=== PATIENT | female | born 1970 | race Two or more races ===

== ENCOUNTER 2024-03-30 18:37 | Emergency (ER) | payer MEDICAID, OTHER ==
[~2024-03-30] VITALS: Ht 149.9 cm; Wt 79.6 kg
[2024-03-30] MEDS ORDERED: cloNIDine HCL 0.1 MG TAB PO ONE (19:45)
[2024-03-30 20:14] LABS: Basophils # (auto) 0.1 10 ^3/uL (0-0.2); Basophils % (auto) 0.8 % (0.0-2.0); Eosinophils # (auto) 0.2 10 ^3/uL (0-0.8); Eosinophils % (auto) 2.5 % (0.0-7.0); Hematocrit 44.1 % (36.0-46.0); Hemoglobin 15.2 g/dL (12.2-16.2); Lymphocytes # (auto) 2.8 10 ^3/uL (0.4-5.4); Lymphocytes % (auto) 32.4 % (10.0-50.0); Mean Corpuscular Hemoglobin 32.4 pg (28.0-32.0); Mean Corpuscular Hgb Conc. 34.5 g/dL (32.0-36.0); Monocytes # (auto) 0.8 10 ^3/uL (0-1.3); Monocytes % (auto) 9.2 % (0.0-12.0); Neutrophils # (auto) 4.8 10 ^3/uL (1.6-8.6); Neutrophils % (auto) 55.1 % (37.0-80.0); Platelet Count (auto) 217 10^3/uL (140-450); Red Blood Cells 4.69 10^6/uL (4.0-5.20); Red Cell Distribution Width 13.6 % (11.8-14.3); White Blood Cell 8.8 10^3/uL (4.4-10.8)
[2024-03-30 20:28] LABS: Chloride 103 mmol/L (98-107); Potassium 4.1 mmol/L (3.5-5.1); Sodium 137 mmol/L (136-145)
[2024-03-30 20:29] VITALS: BP 168/106; PULSE 85; RESP 14; O2SAT 96
[2024-03-30 20:29] LABS: Anion Gap 5 (5-15); Carbon Dioxide 29 mmol/L (20-31)
[2024-03-30 20:30] LABS: Calcium 10.1 mg/dL (8.7-10.4)
[2024-03-30 20:34] LABS: BUN/Creatinine Ratio 9.5 (10.0-20.0); Blood Urea Nitrogen 8 mg/dL (9-23); Glucose 391 mg/dL (74-106)
[2024-03-30] MEDS: InsuLIN REG 1unit/0.01ml Soln (100units/ml) SC ONE (20:36)
[2024-03-30] MEDS: cloNIDine HCL 0.1 MG TAB PO ONE (20:36)
[2024-03-30] MEDS ORDERED: CEPH250C PO (21:37)
== END 2024-03-30 21:50 | disposition home or self-care (01) ==
LOC: ER 18:37
DX: E11.621 Type 2 diabetes mellitus with foot ulcer (principal); L97.519 Non-pressure chronic ulcer of other part of right foot with unspecified severity; E11.65 Type 2 diabetes mellitus with hyperglycemia; E11.42 Type 2 diabetes mellitus with diabetic polyneuropathy; I10 Essential (primary) hypertension; E66.9 Obesity, unspecified; Z68.35 Body mass index [BMI] 35.0-35.9, adult; Z90.49 Acquired absence of other specified parts of digestive tract; Z98.890 Other specified postprocedural states
CPT/HCPCS: 36415; 80048; 82010; 82962; 83605; 85025; 96372; 99283; J1815

== ENCOUNTER 2024-04-03 13:41 | Inpatient (IN) | payer MEDICAID ==
[~2024-04-03] VITALS: Ht 149.9 cm; Wt 74.5 kg
[~2024-04-03 13:41] MED LIST: CEPH250C PO
[2024-04-03] MEDS: SODIUM CHLORIDE 0.9% 500 ML IV ONE (14:15)
[2024-04-03 14:39] LABS: Basophils # (auto) 0.1 10 ^3/uL (0-0.2); Basophils % (auto) 0.8 % (0.0-2.0); Eosinophils # (auto) 0.2 10 ^3/uL (0-0.8); Eosinophils % (auto) 2.2 % (0.0-7.0); Hematocrit 44.8 % (36.0-46.0); Hemoglobin 15.3 g/dL (12.2-16.2); Lymphocytes # (auto) 2.6 10 ^3/uL (0.4-5.4); Lymphocytes % (auto) 36.9 % (10.0-50.0); Mean Corpuscular Hemoglobin 32.4 pg (28.0-32.0); Mean Corpuscular Hgb Conc. 34.2 g/dL (32.0-36.0); Mean Corpuscular Volume 94.7 fL (80.0-100.0); Monocytes # (auto) 0.6 10 ^3/uL (0-1.3); Monocytes % (auto) 8.9 % (0.0-12.0); Neutrophils # (auto) 3.6 10 ^3/uL (1.6-8.6); Neutrophils % (auto) 51.2 % (37.0-80.0); Nucleated Red Blood Cells % 0.1 %; Platelet Count (auto) 255 10^3/uL (140-450); Red Blood Cells 4.73 10^6/uL (4.0-5.20); Red Cell Distribution Width 13.3 % (11.8-14.3)
[2024-04-03 14:45] LABS: Chloride 102 mmol/L (98-107); Potassium 4.3 mmol/L (3.5-5.1); Sodium 137 mmol/L (136-145)
[2024-04-03 14:46] LABS: Anion Gap 8 (5-15); Calcium 10.1 mg/dL (8.7-10.4); Carbon Dioxide 27 mmol/L (20-31)
[2024-04-03 14:51] LABS: BUN/Creatinine Ratio 11.1 (10.0-20.0); Blood Urea Nitrogen 9 mg/dL (9-23)
[2024-04-03 15:01] LABS: Glucose 435 mg/dL (74-106)
[2024-04-03] MEDS: CLINDAMYCIN 600MG IV 50 ML IV ONE (15:15)
[2024-04-03] MEDS: cloNIDine HCL 0.1 MG TAB PO ONE (15:20)
--- NOTE | 2024-04-03 15:22 | DVH ---
INDICATION: pain and infection COMPARISON: None TECHNIQUE: CT of the right foot was performed without contrast. Volume transverse images were obtaine d and reconstructed in multiple planes using bone and soft tissue algorithms. Radiation Dose Information: CT Dose: CTDI volume is 24.73 mGy. Dose-length product is 557.64 mGy*cm FINDINGS: The alignment is normal. The joint spaces are normal. There is no fracture, dislocation or aggressive osseous lesion. There is no joint effusion. Diffuse subcutaneous soft-tissue edema. Soft-tissue ulceration of the inferior aspect of the foot at the level of the 2nd and 3rd MTP joint. IMPRESSION: Diffuse subcutaneous soft-tissue edema ; possibly cellulitis. Soft-tissue ulceration of the inferior aspect of the foot at the level of the 2nd and 3rd MTP joint. No acute fracture or dislocation or definite CT findings of acute osteomyelitis. MRI could be obtained to further evaluate if clinically indicated. All CT scans at this medical facility are performed using dose modulation techniques as appropriate t o a performed exam including the following: Automated exposure control was utilized; adjustment of th e MA and/or KV according to patient size; and use of iterative reconstruction technique.
[2024-04-03] MEDS: InsuLIN REG 1unit/0.01ml Soln (100units/ml) IV ONE (15:45)
[2024-04-03 16:00] VITALS: PULSE 71; RESP 10; O2SAT 95
--- NOTE | 2024-04-03 16:45 | ED.PDOC ---
History of Present Illness HPI Comments 53-year-old female who comes in with chief complaint of right foot pain and swelling with drainage from the area. The patient denies any trauma. The patient denies any fever or chills. At this time, the patient states that the pain is a 6/10. The pain seemed to worsened over the past seven days so she came to the emergency department's for evaluation. The patient does have a history of diabetes but states that she has not taken her medication for a significant period of time. She also has a history of hypertension and has been somewhat noncompliant. She did come in with an elevated blood pressure as well. Chief Complaint: Lower Extremity Time Seen by MD: 14:09 Primary Care Provider: none Reviewed Notes: Nurses Notes, Medications, Allergies (No allergies to medications) Allergies: Coded Allergies: NO KNOWN ALLERGIES (Unverified , 03/30/24) Home Meds Active Scripts Cephalexin (KEFLEX CAPSULE) 250 Mg Cp, 500 MG PO BID, #14 CAP Prov:CRISTAL CARABALLO MD 03/30/24 Information Source: Patient Mode of Arrival: Ambulatory Severity: Moderate Timing: Days Duration: Since onset Prehospital treatment: None Location: Right foot redness with some drainage to the base of the foot Associated signs and symptoms There is no fever or chills at this time Past Medical History PAST MEDICAL HISTORY: DM, HTN Surgical History: BTL, Cholecystectomy, [employer] History: Denies all [employer] Hx Family History Family History: Family hx of DM Social History Smoker: Non-Smoker Alcohol: Denies ETOH Use Drugs: Denies Drug Use Lives In: Home Constitutional: denies: chills, diaphoresis, fatigue, fever, malaise, sweats, weakness, others EENTM: denies: blurred vision, double vision, ear bleeding, ear discharge, ear drainage, ear pain, ear ringing, eye pain, eye redness, hearing loss, mouth p ain, mouth swelling, nasal discharge, nose bleeding, nose congestion, nose pain, photophobia, tearing, throat pain, throat swelling, voice changes, others Respiratory: denies: cough, hemoptysis, orthopnea, SOB at rest, shortness of br eath, SOB with excertion, stridor, wheezing, others Cardiovascular: denies: chest pain, dizzy spells, diaphoresis, Dyspnea on exertion, edema, irregular heart beat, left arm pain, lightheadedness, palpitations, PND, syncope, others Gastrointestinal: denies: abdomen distended, abdominal pain, blood streaked bowels, constipated, diarrhea, dysphagia, difficulty swallowing, hematemesis, melena, nausea, poor appetite, poor fluid intake, rectal bleeding, rectal pain, vomiting, others Genitourinary: denies: abnormal vagina bleeding, burning, dyspareunia, dysuria, flank pain, frequency, hematuria, incontinence, pain, , vagina discharge, urgency, others Neurological: denies: dizziness, fainting, headache, left sided numbness, left sided weakness, numbness, paresthesia, pre-existing deficit, right sided numbness, right sided weakness, seizure, speech problems, tingling, tremors, weakness, others Musculoskeletal: denies: back pain, gout, joint pain, joint swelling, muscle pain, muscle stiffness, neck pain, others Integumetry: reports: wounds (There is a wound to the base of the right foot on the plantar aspect with redness and some mild drainage); denies: bruises, change in color, change in hair/nails, dryness, laceration, lesions, lumps, rash, others Allergic/Immunocompromised: denies: Difficulty Healing, Frequent Infections, Hives, Itching, others Hematologic/Lymphatic: denies: anemia, blood clots, easy bleeding, easy bruising, swollen glands, others Endocrine: denies: excessive hunger, excessive sweating, excessive thirst, excessive urination, flushing, intolerance to cold, intolerance to heat, unexplained weight gain, unexplained weight loss, others Psychiatric: denies: anxiety, bipolar disorder, depression, hopeless, panic disorder, schizophrenia, sleepless, suicidal, others Physical Exam General Appearance: Moderate Distress HEENT: Normal ENT Inspection, Pharynx Normal, TMs Normal Neck: Full Range of Motion, Non-Tender, Normal, Normal Inspection Respiratory: Chest Non-Tender, Lungs Clear, No Accessory Muscle Use, No Respiratory Distress, Normal Breath Sounds Cardiovascular: No Edema, No JVD, No Murmur, No Gallop, Normal Peripheral Pulses, Regular Rate/Rhythm Breast Exam: Deferred Gastrointestinal: No Organomegaly, Non Tender, No Pulsatile Mass, Normal Bowel Sounds, Soft Genitalia: Deferred Pelvic: Deferred Rectal: Deferred Extremities: No calf tenderness, Normal capillary refill, No pedal edema Musculoskeletal : Apperance: Normal Neurologic: Alert, personal coach II-XII nml as Tested, No Motor Deficits, Normal Affect, Normal Mood, No Sensory Deficits Cerebellar Function: Normal Reflexes: Normal Skin: Dry, Warm, Wounds (There are wounds to the right foot with redness and drainage) Lymphatic: No Adenopathy Was a procedure done? Was a procedure done?: No Differential Dx Considerations may include: Cellulitis, abscess, generalized weakness X-Ray, Labs, Meds, VS Vital Signs Date Time Temp Pulse Resp B/P (MAP) Pulse Ox O2 Delivery O2 Flow Rate FiO2 04/03/24 16:00 71 10 95 Room Air* 0 21 04/03/24 15:20 211/104 04/03/24 15:17 211/104 (139) 04/03/24 15:16 90 18 96 Room Air 04/03/24 15:16 90 18 234/119 (157) 96 04/03/24 14:02 97.8 88 16 173/106 (128) 97 Lab Test 04/03/24 14:26 Range/Units White Blood Count 7.0 4.4-10.8 10^3/uL Red Blood Count 4.73 4.0-5.20 10^6/uL Hemoglobin 15.3 12.2-16.2 g/dL Hematocrit 44.8 36.0-46.0 % Mean Corpuscular Volume 94.7 80.0-100.0 fL Mean Corpuscular Hemoglobin 32.4 H 28.0-32.0 pg Mean Corpuscular Hemoglobin Concent 34.2 32.0-36.0 g/dL Red Cell Distribution Width 13.3 11.8-14.3 % Platelet Count 255 140-450 10^3/uL Mean Platelet Volume 10.6 6.9-10.8 fL Neutrophils (%) (Auto) 51.2 37.0-80.0 % Lymphocytes (%) (Auto) 36.9 10.0-50.0 % Monocytes (%) (Auto) 8.9 0.0-12.0 % Eosinophils (%) (Auto) 2.2 0.0-7.0 % Basophils (%) (Auto) 0.8 0.0-2.0 % Neutrophils # (Auto) 3.6 1.6-8.6 10 ^3/uL Lymphocytes # (Auto) 2.6 0.4-5.4 10 ^3/uL Monocytes # (Auto) 0.6 0-1.3 10 ^3/uL Eosinophils # (Auto) 0.2 0-0.8 10 ^3/uL Basophils # (Auto) 0.1 0-0.2 10 ^3/uL Nucleated Red Blood Cells 0.1 % Sodium Level 137 136-145 mmol/L Potassium Level 4.3 3.5-5.1 mmol/L Chloride Level 102 98-107 mmol/L Carbon Dioxide Level 27 20-31 mmol/L Anion Gap 8 5-15 Blood Urea Nitrogen 9 9-23 mg/dL Creatinine 0.81 0.550-1.02 mg/dL Glomerular Filtration Rate Calc 86 >90 mL/min BUN/Creatinine Ratio 11.1 10.0-20.0 Serum Glucose 435 *H 74-106 mg/dL Lactic Acid Level 1.7 0.4-2.0 mmol/L Calcium Level 10.1 8.7-10.4 mg/dL Current Medications Medications (Trade) Dose Ordered Sig/Robert Route Start Time Stop Time Status Last Admin Clindamycin Phosphate 50 ml @ 50 mls/hr ONCE ONCE IV 04/03/24 14:15 04/03/24 15:14 DC 04/03/24 15:15 Clonidine HCl (Catapres Tablet) 0.2 mg ONCE ONCE PO 04/03/24 15:15 04/03/24 15:16 DC 04/03/24 15:20 Insulin Human Regular (InsuLIN R) 5 units ONCE ONCE IV 04/03/24 15:45 04/03/24 15:46 DC 04/03/24 15:45 The patient's CBC and chemistry panel are within normal limits The patient was started on clindamycin IV piggyback The patient was given clonidine 0.2 mg by mouth for the elevated blood pressure The patient was also given insulin 5 units IV push for the hyperglycemia The patient's glucose was 435 The patient's lactic acid level is negative Blood cultures were also drawn on this patient The CT scan of the right foot shows: IMPRESSION: Diffuse subcutaneous soft-tissue edema ; possibly cellulitis. Soft-tissue ulceration of the inferior aspect of the foot at the level of the 2nd and 3rd MTP joint. No acute fracture or dislocation or definite CT findings of acute osteomyelitis. MRI could be obtained to further evaluate if clinically indicated. The patient is being admitted at this time Images Reviewed?: Images reviewed and evaluated by me Time of 1ST Reevaluation: 16:45 Reevaluation 1ST: Unchanged Patient Education/Counseling: Diagnosis, Treatment, Prognosis Family Education/Counseling: No Family Present Departure 1 Departure Time of Disposition: 16:58 Impression: Primary Impression: Diabetic foot ulcer Qualified Codes: E13.621 - Other specified diabetes mellitus with foot ulcer; L97.419 - Non-pressure chronic ulcer of right heel and midfoot with unspecified severity Additional Impressions: Poorly controlled diabetes mellitus Cellulitis of right foot Disposition: ADMITTED INPATIENT Admit to: Med Surg Condition: Fair Critical Care Note Critical Care Time?: No Stability Stability form required: Yes Unstable for transfer: ED Physician Assesment (Clinical assesment) Heart Score Heart Score: Heart Score Response (Comments) Value History N/A 0 EKG N/A 0 Age N/A 0 Risk Factors N/A 0 Troponin N/A 0 Total 0 BERONICA LUKE MD Apr 03, 2024 16:45
[2024-04-03] MEDS ORDERED: ACETAMINOPHEN 650 mg PER 20.3 mL UD PO ONE (17:00)
[2024-04-03] MEDS: ACETAMINOPHEN 325 MG TAB PO ONE (17:15)
[2024-04-03 19:48] VITALS: PULSE 80; RESP 15; O2SAT 95
[2024-04-03] MEDS ORDERED: DEXTROSE (50%) 50ML SYRG IV PRN (20:30)
[2024-04-03] MEDS ORDERED: MORPHINE SULFATE INJ 2 MG/ml SYRG IV PRN (20:30)
[2024-04-03] MEDS ORDERED: ONDANSETRON HCL 4 MG/2 ML VIAL IV PRN (20:30)
[2024-04-03] MEDS ORDERED: NITROGLYCERIN 0.4 MG SL TAB SL PRN (20:30)
[2024-04-03] MEDS: ENOXAPARIN SOD 40 MG/0.4 ML SYRINGE SC SCH (20:55)
[2024-04-03 22:30] VITALS: BP 167/70; PULSE 71; RESP 18; TEMP 98; O2SAT 97
[2024-04-03] MEDS: MORPHINE SULFATE INJ 2 MG/ml SYRG IV PRN (22:42)
[2024-04-03] MEDS: ACCU-CHEK COMFORT CURVE STRIP VI SCH (22:44)
[2024-04-03] MEDS: InsuLIN REG 1unit/0.01ml Soln (100units/ml) SC SCH (22:44)
[2024-04-03] MEDS: SODIUM CHLOR 0.9% PF (SALINE LOCK) 10ML VIAL/SYR IV SCH (22:45)
[2024-04-04] VITALS (8 sets, daily range): BP systolic 110–162; BP diastolic 62–89; PULSE 74–90; RESP 15–20; TEMP 97.6–98.4; O2SAT 92–97
[2024-04-04] MEDS ORDERED: VANCOMYCIN PER PHARMACY 0 MG IV SCH (00:45)
--- NOTE | 2024-04-04 00:54 | DVHHPRES ---
History of Present Illness Resident Creating Document: HUY DENNY RESIDENT History of Present Illness MACK JENKINS is a 53 years old female with a PMH of type 2 DM, HTN presented to the ED with the chief complaints of persistent right foot ulcer, pain for past 1 week. Last night patient had small cut in right foot, she went to ED, given Keflex but despite of antibiotic she has been having increased pain, swelling and worsening of the ulcer which prompted her to ED. patient states pain is 7/10 constant. Patient denies she is not taking any medications for her diabetes and hypertension. On my assessment patient denies fever, nausea, vomiting, chills, abdominal pain, chest pain, and other associated symptoms Past Medical History DM HTN Past Surgical History BTL, cholecystectomy, Family History Family history DM Past Social History Lives at home with family. Denies smoking, alcohol and other drug abuse Review of Systems Constitutional: No: Fever, Chills, Sweats, Weakness, Malaise, Other Eyes: No: Pain, Vision change, Conjunctivae inflammation, Eyelid inflammation, Other, Redness ENT: No: Ear pain, Ear discharge, Nose pain, Nose discharge, Nose congestion, Mouth pain, Mouth swelling, Throat pain, Throat swelling, Other Respiratory: No: Cough, Dry, Shortness of breath, SOB with excertion, Wheezing, Hemoptysis, Pleuritic Pain, Sputum, Wheezing, Other Gastrointestinal: No: Nausea, Vomiting, Abdominal Pain, Diarrhea, Constipation, Melena, Hematochezia, Other Genitourinary: No Dysuria, No Frequency, No Incontinence, No Hematuria, No Retention, No Other Musculoskeletal: No: other, neck pain, shoulder pain, arm pain, back pain, hand pain, leg pain, foot pain Skin: Other (Wound on plantar surface of right 2nd and 3rd metatarsal heads which is indurated, swollen, hot) Allergies: Coded Allergies: NO KNOWN ALLERGIES (Unverified , 03/30/24) Medications Current Medications Medications Dose Ordered Sig/Robert Route Start Time Stop Time Status Last Admin Dose Admin Sodium Chloride 10 ml Q8HR IV 04/03/24 22:00 04/03/24 22:45 10 ML Acetaminophen 325 mg Q4HP PRN PO 04/03/24 20:30 Ondansetron HCl 4 mg Q4HP PRN IV 04/03/24 20:30 Morphine Sulfate 2 mg Q4HPRN PRN IV 04/03/24 20:30 04/03/24 22:42 2 MG Enoxaparin Sodium 40 mg DAILY SC 04/03/24 20:30 04/03/24 20:55 40 MG Nitroglycerin 0.4 mg Q5MINP PRN SL 04/03/24 20:30 Morphine Sulfate 2 mg Q30M PRN IV 04/03/24 20:30 Diagnostic Test (Pha) 1 strip ACHS 04/03/24 22:00 04/03/24 22:44 1 STRIP Insulin Human Regular AC SC 04/04/24 07:00 Insulin Human Regular HS SC 04/03/24 22:00 04/03/24 22:44 6 UNITS Dextrose 50 ml UD PRN IV 04/03/24 20:30 Insulin Glargine 15 units QAM SC 04/04/24 07:00 Cefepime HCl 50 ml @ 12.5 mls/hr Q8HR IV 04/04/24 00:45 Vancomycin HCl 0 ml @ 0 mls/hr UD IV 04/04/24 00:45 UNV Labetalol HCl 10 mg Q2HPRN PRN IV 04/04/24 01:00 Exam Vital Signs Vital Signs Date Time Temp Pulse Resp B/P (MAP) Pulse Ox O2 Delivery O2 Flow Rate FiO2 04/03/24 23:12 71 16 152/82 04/03/24 21:00 95 04/03/24 19:48 Room Air* 0 21 04/03/24 14:02 97.8 Exam Pt is lying on bed General Appearance: Alert, Oriented X3, Cooperative, Not in acute distress HEENT: Atraumatic, Mucous membranes moist/pink Respiratory: Clear to auscultation, Normal air movement, No added sounds Cardiovascular: Regular rate, Normal S1, Normal S2, No murmurs Abdominal: Active bowel sounds, Soft, no distention, no tenderness Extremities: Wound on plantar surface of right 2nd and 3rd metatarsal heads which is indurated, swollen, hot Skin: Wound on plantar surface of right 2nd and 3rd metatarsal heads which is indurated, swollen, hot Neuro: Normal speech, sensorimotor deficits none Psych/Mental Status: Mental status NL, Mood NL Nurse was there as sharperone during examination Labs/Xrays Labs Test 04/03/24 22:33 04/03/24 14:26 Range/Units POC Glucose 267 H 70-106 mg/dl White Blood Count 7.0 4.4-10.8 10^3/uL Red Blood Count 4.73 4.0-5.20 10^6/uL Hemoglobin 15.3 12.2-16.2 g/dL Hematocrit 44.8 36.0-46.0 % Mean Corpuscular Volume 94.7 80.0-100.0 fL Mean Corpuscular Hemoglobin 32.4 H 28.0-32.0 pg Mean Corpuscular Hemoglobin Concent 34.2 32.0-36.0 g/dL Red Cell Distribution Width 13.3 11.8-14.3 % Platelet Count 255 140-450 10^3/uL Mean Platelet Volume 10.6 6.9-10.8 fL Neutrophils (%) (Auto) 51.2 37.0-80.0 % Lymphocytes (%) (Auto) 36.9 10.0-50.0 % Monocytes (%) (Auto) 8.9 0.0-12.0 % Eosinophils (%) (Auto) 2.2 0.0-7.0 % Basophils (%) (Auto) 0.8 0.0-2.0 % Neutrophils # (Auto) 3.6 1.6-8.6 10 ^3/uL Lymphocytes # (Auto) 2.6 0.4-5.4 10 ^3/uL Monocytes # (Auto) 0.6 0-1.3 10 ^3/uL Eosinophils # (Auto) 0.2 0-0.8 10 ^3/uL Basophils # (Auto) 0.1 0-0.2 10 ^3/uL Nucleated Red Blood Cells 0.1 % Sodium Level 137 136-145 mmol/L Potassium Level 4.3 3.5-5.1 mmol/L Chloride Level 102 98-107 mmol/L Carbon Dioxide Level 27 20-31 mmol/L Anion Gap 8 5-15 Blood Urea Nitrogen 9 9-23 mg/dL Creatinine 0.81 0.550-1.02 mg/dL Glomerular Filtration Rate Calc 86 >90 mL/min BUN/Creatinine Ratio 11.1 10.0-20.0 Serum Glucose 435 *H 74-106 mg/dL Lactic Acid Level 1.7 0.4-2.0 mmol/L Calcium Level 10.1 8.7-10.4 mg/dL Assessment/Plan Assessment/Plan # ? Right foot cellulitis # Rule out right foot osteomyelitis -ordered wound cultures, wound consult -consult podiatry for further management -currently on cefepime and vancomycin -NPO after midnight -foot CT showed diffuse subcutaneous edema likely cellulitis and ulceration at the base of the 2nd and 3rd MTP joint -ordered foot MRI # Uncontrolled type 2 DM -ordered aggressive ISS -Lantus 15 units -continuously monitored # HTN urgency -continuously monitor blood pressure -given 1 dose of 0.2 clonidine -ordered labetalol 10 mg p.r.n. # medication noncompliance -explained risks of being noncompliant to medications Lovenox for now No GI PPX NPO after midnight Goals of care discussed with the patient for more than 27 minutes: Full code status Case management discussed with Dr. Huston, patient and nurse Plan discussed with: Patient My Orders Orders - HUY DENNY RESIDENT Procedure Category Date Status Time Admit ADMIT 04/03/24 Transmitted 20:24 Allergies MARISELA 04/03/24 In Process 20:24 Code Status CODE 04/03/24 Transmitted 20:24 Sodium Chloride Lock PHA 04/03/24 In Process (Saline Lock Ns) 22:00 Acetaminophen Tablet PHA 04/03/24 In Process (Tylenol Tablet) 20:30 Ondansetron Hcl PHA 04/03/24 In Process (Zofran) 20:30 Complete Blood Count LAB 04/04/24 Logged 04:00 Comprehensive LAB 04/04/24 Logged Metabolic Panel 04:00 Npo (Nothing By DIET 04/04/24 Transmitted Mouth) Diet Breakfast Morphine Sulfate PHA 04/03/24 In Process Injection 20:30 Enoxaparin Sodium PHA 04/03/24 In Process (Lovenox) 20:30 Nitroglycerin PHA 04/03/24 In Process Sublingual (Ntrostat 20:30 Morphine Sulfate PHA 04/03/24 In Process Injection 20:30 Oxygen By Nasal RT 04/03/24 Transmitted Cannula 20:24 Stat Ekg For Chest MARISELA 04/03/24 In Process Pain 20:24 Notify Of Changes MARISELA 04/03/24 In Process From Base 20:24 Medical Laboratory Technician For MARISELA 04/03/24 In Process 24 Hours 20:24 Emergency Dysrhythmia MARISELA 04/03/24 In Process Protocol 20:24 Rhythm Strips Once MARISELA 04/03/24 In Process Every Shift 20:24 *Podiatry Consult CONS 04/03/24 Transmitted Musson(Dvmg) 20:24 Glucose Blood PHA 04/03/24 In Process (Accu-Chek Comfort 22:00 Insulin R (Human) PHA 04/04/24 In Process (Insulin R) 07:00 Insulin R (Human) PHA 04/03/24 In Process (Insulin R) 22:00 Dextrose 50% Syringe PHA 04/03/24 In Process 20:30 Insulin Lantus PHA 04/04/24 In Process (Glargine) (Lantus) 07:00 Consistent DIET 04/04/24 Transmitted Carb(Ccho)Diabetes Breakfast Cefepime 1gm/ 50ml PHA 04/04/24 In Process (Maxipime 1gm/50ml) 00:45 Vancomycin Per PHA 04/04/24 Pending Pharmacy 00:45 * Wound Consult CONS 04/04/24 Transmitted Wound Culture W/ Gs ANNIE 04/04/24 Logged 00:38 Mri R Foot Wo Contrast MRI 04/04/24 Logged 00:38 Chest Xray 1 View XY 04/04/24 Logged 00:44 Electrocardigram EKG 04/04/24 Logged 00:44 Vancomycin 1gm/200ml PHA 04/04/24 In Process Premix 01:00 Labetalol Hcl PHA 04/04/24 In Process (Labetalol Hcl) 01:00 Date of Service: Apr 03, 2024 Billing Provider: ROMARIO HUSTON MD Common Visit Codes: [id number] INP/OBS CARE (HIGH) HUY DENNY RESIDENT Apr 04, 2024 00:54 ROMARIO HUSTON MD Apr 04, 2024 12:56
[2024-04-04] MEDS: VANCOMYCIN 1GM/200ML PREMIX IV ONE (02:39)
[2024-04-04] MEDS: CEFEPIME 1GM/ 50ML 50 ML IV SCH ×2 (04:35→12:28)
--- NOTE | 2024-04-04 05:51 | DVH ---
EXAM: XY CHEST XRAY 1 VIEW Indication:sob Technique: Single frontal view of the chest was obtained Comparison: None FINDINGS: Lines and Tubes: None Lungs: No focal consolidation. Pleura: No effusion. No pneumothorax. Cardiomediastinal contours: Unremarkable Bones: No acute osseous abnormality. IMPRESSION: No acute cardiopulmonary disease.
[2024-04-04] MEDS: InsuLIN REG 1unit/0.01ml Soln (100units/ml) SC SCH (06:25)
[2024-04-04] MEDS: INSULIN LANTUS (GLARGINE) 1 /0.01ml (100units/ml) SC SCH (06:26)
[2024-04-04 06:55] LABS: Basophils # (auto) 0 10 ^3/uL (0-0.2); Basophils % (auto) 0.7 % (0.0-2.0); Eosinophils # (auto) 0.1 10 ^3/uL (0-0.8); Eosinophils % (auto) 2.8 % (0.0-7.0); Hematocrit 38.5 % (36.0-46.0); Hemoglobin 13.1 g/dL (12.2-16.2); Lymphocytes # (auto) 2.2 10 ^3/uL (0.4-5.4); Lymphocytes % (auto) 42.6 % (10.0-50.0); Mean Corpuscular Hemoglobin 31.9 pg (28.0-32.0); Mean Corpuscular Volume 93.8 fL (80.0-100.0); Monocytes # (auto) 0.5 10 ^3/uL (0-1.3); Monocytes % (auto) 10.4 % (0.0-12.0); Neutrophils # (auto) 2.2 10 ^3/uL (1.6-8.6); Neutrophils % (auto) 43.5 % (37.0-80.0); Nucleated Red Blood Cells % 0.1 %; Platelet Count (auto) 219 10^3/uL (140-450); Red Blood Cells 4.11 10^6/uL (4.0-5.20); Red Cell Distribution Width 13.1 % (11.8-14.3); White Blood Cell 5.1 10^3/uL (4.4-10.8)
[2024-04-04 07:20] LABS: Alanine Aminotransferase 86 U/L (7-40); Albumin 3.6 g/dL (3.2-4.8); Alkaline Phosphatase 151 U/L (46-116); Anion Gap 5 (5-15); Aspartate Aminotransferase 162 U/L (13-40); BUN/Creatinine Ratio 16.2 (10.0-20.0); Blood Urea Nitrogen 12 mg/dL (9-23); Calcium 9.2 mg/dL (8.7-10.4); Carbon Dioxide 28 mmol/L (20-31); Chloride 107 mmol/L (98-107); Glucose 358 mg/dL (74-106); Potassium 3.9 mmol/L (3.5-5.1); Sodium 140 mmol/L (136-145)
[2024-04-04 07:21] LABS: Bilirubin, Total 0.3 mg/dL (0.2-1.0); Total Protein 6.1 g/dL (5.7-8.2)
[2024-04-04] MEDS: ACETAMINOPHEN 325 MG TAB PO PRN (09:58)
--- NOTE | 2024-04-04 12:23 | DVH ---
EXAM: MRI MRI R FOOT WO CONTRAST HISTORY: Rule out osteomyelitis COMPARISON: None TECHNIQUE: Multiplanar, multisequence MRI of the right foot was performed. FINDINGS: Small shallow plantar skin ulceration is seen at the level of the 3rd MTP joint with mild underlying subcutaneous edema . No drainable fluid collection noted in this limited unenhanced study. There is moderate dorsal soft tissue edema. There is no evidence of intermetatarsal bursitis or Ordaz's neuro ma. No significant muscle atrophy is noted. The visualized osseous structures demonstrate normal cortical and bone marrow signal intensity withou t evidence of fracture, trabecular bony injury, or dislocation. Mild hallux valgus deformity. The Lisfranc ligament is intact. The visualized portions of tibialis posterior, flexor hallucis longus, and flexor digitorum tendons a re intact. Visualized portions of peroneus longus and brevis tendons are intact. Visualized portion s of the tibialis anterior, extensor digitorum, and extensor hallucis tendons are intact. The partially visualized plantar fascia is intact. IMPRESSION: Shallow plantar ulceration at the level of the 3rd MTP joint with mild associated cellulitis without drainable fluid collection or evidence of osteomyelitis. Moderate dorsal soft tissue edema/ celluliti s noted.
[2024-04-04] MEDS: DOCUSATE SOD 100 MG CAP PO ONE (12:27)
--- NOTE | 2024-04-04 13:51 | DVHPN2 ---
Subjective The patient seen and examined at bedside. Complain of pain in the leg area. Reviewed: Care Plan, H&P, Labs, Medications, Previous Orders, Radiology Changes from previous H/P or p: No Changes Eyes: No Pain, No Vision change, No Conjunctivae inflammation, No Eyelid inflammation, No Other, No Redness ENT: No Ear pain, No Ear discharge, No Nose pain, No Nose discharge, No Nose congestion, No Mouth pain, No Mouth swelling, No Throat pain, No Throat swelling, No Other Respiratory: No Cough, No Dry, No Shortness of breath, No SOB with excertion, No Wheezing, No Hemoptysis, No Pleuritic Pain, No Sputum, No Other Gastrointestinal: No Nausea, No Vomiting, No Abdominal Pain, No Diarrhea, No Constipation, No Melena, No Hematochezia, No Other Genitourinary: No Dysuria, No Frequency, No Incontinence, No Hematuria, No Retention, No Other Musculoskeletal: No other, No neck pain, No shoulder pain, No arm pain, No back pain, No hand pain, No leg pain, No foot pain Skin: Other (Wound on plantar surface of right 2nd and 3rd metatarsal heads which is indurated, swollen, hot) Objective Vitals Vital Signs Date Time Temp Pulse Resp B/P (MAP) Pulse Ox O2 Delivery O2 Flow Rate FiO2 04/04/24 09:58 98.0 04/04/24 09:00 84 15 132/80 (97) 92 04/04/24 00:09 Room Air* 0 21 Intake/Output Intake and Output 04/04/24 07:00 Intake Total 850 ml Balance 850 ml Intake Oral 600 ml IV Total 250 ml # Voids 1 General Appearance: Alert, Oriented X3, Cooperative, No acute distress HEENT: Atraumatic, PERRLA, EOMI, Mucous membr. moist/pink Neck: Supple Lungs: Clear to auscultation, Normal air movement Cardiovascular: Regular rate, Normal S1, Normal S2, No murmurs, Gallops, Rubs Abdomen: Normal bowel sounds, Soft, No tenderness Neuro: Cranial nerves 3-12 NL Psych/Mental Status: Mental status NL Medications Current Medications Medications Dose Ordered Sig/Robert Route Start Time Stop Time Status Last Admin Dose Admin Sodium Chloride 10 ml Q8HR IV 04/03/24 22:00 04/04/24 06:27 10 ML Acetaminophen 325 mg Q4HP PRN PO 04/03/24 20:30 04/04/24 09:58 325 MG Ondansetron HCl 4 mg Q4HP PRN IV 04/03/24 20:30 Morphine Sulfate 2 mg Q4HPRN PRN IV 04/03/24 20:30 04/03/24 22:42 2 MG Enoxaparin Sodium 40 mg DAILY SC 04/03/24 20:30 04/04/24 09:55 40 MG Nitroglycerin 0.4 mg Q5MINP PRN SL 04/03/24 20:30 Morphine Sulfate 2 mg Q30M PRN IV 04/03/24 20:30 Diagnostic Test (Pha) 1 strip ACHS 04/03/24 22:00 04/04/24 06:26 1 STRIP Insulin Human Regular AC SC 04/04/24 07:00 04/04/24 06:25 16 UNITS Insulin Human Regular HS SC 04/03/24 22:00 04/03/24 22:44 6 UNITS Dextrose 50 ml UD PRN IV 04/03/24 20:30 Insulin Glargine 15 units QAM SC 04/04/24 07:00 04/04/24 06:26 15 UNITS Vancomycin HCl 0 ml @ 0 mls/hr UD IV 04/04/24 00:45 Labetalol HCl 10 mg Q2HPRN PRN IV 04/04/24 01:00 Cefepime HCl 50 ml @ 12.5 mls/hr Q8HR IV 04/04/24 12:00 04/04/24 12:28 12.5 MLS/HR Vancomycin HCl 150 ml @ 150 mls/hr Q10H IV 04/04/24 14:00 Docusate Sodium 100 mg BIDPRN PRN PO 04/04/24 12:30 Laboratory Results Laboratory Tests 04/04/24 06:04 Chemistry Test 04/03/24 14:26 04/04/24 06:04 Calcium Level 10.1 mg/dL (8.7-10.4) 9.2 mg/dL (8.7-10.4) Albumin 3.6 g/dL (3.2-4.8) Total Protein 6.1 g/dL (5.7-8.2) LFT Test 04/04/24 06:04 Alanine Aminotransferase (ALT) 86 U/L (7-40) H Alkaline Phosphatase 151 U/L (46-116) H Aspartate Amino Transferase (AST) 162 U/L (13-40) H Total Bilirubin 0.3 mg/dL (0.2-1.0) Labs and/or images reviewed: Labs reviewed by me Assessment/Plan Assessment/Plan # Right foot cellulitis # Rule out right foot osteomyelitis # Uncontrolled type 2 DM # HTN urgency # medication noncompliance Continuing current management. Continuing with IV antibiotic. I will start the patient on diabetic diet. Waiting for mystery shopper to see the patient. Advised the patient to compliant with her regimen. Continuing sliding scale insulin. Continuing Lantus. Plan discussed with: Patient My Orders Orders - JOHN MORENO MD Procedure Category Date Status Time Consistent DIET 04/04/24 Transmitted Carb(Ccho)Diabetes Lunch Docusate Sodium PHA 04/04/24 In Process Capsule (Colace 12:30 Cleanse Wound With MARISELA 04/04/24 In Process Wound Clean 10:00 * Dietary Consult CONS 04/04/24 Transmitted 13:14 Date of Service: Apr 04, 2024 Billing Provider: JOHN MORENO MD Common Visit Codes: [id number] INP/OBS CARE(HIGH) JOHN MORENO MD Apr 04, 2024 13:51
[2024-04-04] MEDS: DOCUSATE SOD 100 MG CAP PO PRN (18:05)
[2024-04-04] MEDS: LABETALOL HCL 20 MG/4 ML VL IV PRN (18:05)
[2024-04-04] MEDS: VANCOMYCIN 750mg/150ml 150 ML IV SCH (18:13)
[2024-04-04] MEDS ORDERED: DOCUSATE SOD 100 MG CAP PO SCH (22:00)
[2024-04-05] VITALS (7 sets, daily range): BP systolic 139–158; BP diastolic 79–92; PULSE 72–87; RESP 17–20; TEMP 97.5–98.2; O2SAT 93–97
--- NOTE | 2024-04-05 13:29 | DVHPN2 ---
Subjective The patient is seen and examined at bedside. Still complaint of leg pain. No fever or chill. Reviewed: Care Plan, H&P, Labs, Medications, Previous Orders, Radiology Changes from previous H/P or p: No Changes Eyes: No Pain, No Vision change, No Conjunctivae inflammation, No Eyelid inflammation, No Other, No Redness ENT: No Ear pain, No Ear discharge, No Nose pain, No Nose discharge, No Nose congestion, No Mouth pain, No Mouth swelling, No Throat pain, No Throat swelling, No Other Respiratory: No Cough, No Dry, No Shortness of breath, No SOB with excertion, No Wheezing, No Hemoptysis, No Pleuritic Pain, No Sputum, No Other Gastrointestinal: No Nausea, No Vomiting, No Abdominal Pain, No Diarrhea, No Constipation, No Melena, No Hematochezia, No Other Genitourinary: No Dysuria, No Frequency, No Incontinence, No Hematuria, No Retention, No Other Musculoskeletal: No other, No neck pain, No shoulder pain, No arm pain, No back pain, No hand pain, No leg pain, No foot pain Skin: Other (Wound on plantar surface of right 2nd and 3rd metatarsal heads which is indurated, swollen, hot) Objective Vitals Vital Signs Date Time Temp Pulse Resp B/P (MAP) Pulse Ox O2 Delivery O2 Flow Rate FiO2 04/05/24 09:27 98.1 72 19 158/92 (114) 97 98.1 04/04/24 20:00 Room Air* 0 21 Intake/Output Intake and Output 04/05/24 07:00 Intake Total 1900 ml Balance 1900 ml Intake Oral 1500 ml IV Total 400 ml # Voids 3 General Appearance: Alert, Oriented X3, Cooperative, No acute distress HEENT: Atraumatic, PERRLA, EOMI, Mucous membr. moist/pink Neck: Supple Lungs: Clear to auscultation, Normal air movement Cardiovascular: Regular rate, Normal S1, Normal S2, No murmurs, Gallops, Rubs Abdomen: Normal bowel sounds, Soft, No tenderness Neuro: Cranial nerves 3-12 NL Psych/Mental Status: Mental status NL Medications Current Medications Medications Dose Ordered Sig/Robert Route Start Time Stop Time Status Last Admin Dose Admin Sodium Chloride 10 ml Q8HR IV 04/03/24 22:00 04/05/24 05:36 10 ML Acetaminophen 325 mg Q4HP PRN PO 04/03/24 20:30 04/05/24 11:31 325 MG Ondansetron HCl 4 mg Q4HP PRN IV 04/03/24 20:30 Morphine Sulfate 2 mg Q4HPRN PRN IV 04/03/24 20:30 04/04/24 15:48 2 MG Enoxaparin Sodium 40 mg DAILY SC 04/03/24 20:30 04/05/24 10:26 40 MG Nitroglycerin 0.4 mg Q5MINP PRN SL 04/03/24 20:30 Morphine Sulfate 2 mg Q30M PRN IV 04/03/24 20:30 Diagnostic Test (Pha) 1 strip ACHS 04/03/24 22:00 04/05/24 11:24 1 STRIP Insulin Human Regular AC SC 04/04/24 07:00 04/05/24 11:28 16 UNITS Insulin Human Regular HS SC 04/03/24 22:00 04/04/24 21:33 6 UNITS Dextrose 50 ml UD PRN IV 04/03/24 20:30 Insulin Glargine 15 units QAM SC 04/04/24 07:00 04/05/24 06:20 15 UNITS Vancomycin HCl 0 ml @ 0 mls/hr UD IV 04/04/24 00:45 Labetalol HCl 10 mg Q2HPRN PRN IV 04/04/24 01:00 04/05/24 08:29 10 MG Cefepime HCl 50 ml @ 12.5 mls/hr Q8HR IV 04/04/24 12:00 04/05/24 05:35 12.5 MLS/HR Vancomycin HCl 150 ml @ 150 mls/hr Q10H IV 04/04/24 14:00 04/05/24 10:26 150 MLS/HR Docusate Sodium 100 mg BIDPRN PRN PO 04/04/24 12:30 04/05/24 10:25 100 MG Laboratory Results Laboratory Tests 04/04/24 06:04 04/05/24 10:05 Microbiology Microbiology Date/Time Source Procedure Growth Status 04/04/24 07:15 Foot Gram Stain - Final Resulted 04/04/24 07:15 Foot Wound Culture - Preliminary Resulted 04/03/24 14:26 Blood Blood Culture - Preliminary NO GROWTH AFTER 24 HOURS OF INCUBATION. Resulted Labs and/or images reviewed: Labs reviewed by me Assessment/Plan Assessment/Plan # Right foot cellulitis # Rule out right foot osteomyelitis # Uncontrolled type 2 DM # HTN urgency # medication noncompliance Continuing current management. Continuing with IV antibiotic with vancomycin and cefepime. MRI results shows: Shallow plantar ulceration at the level of the 3rd MTP joint with mild associated cellulitis without drainable fluid collection or evidence of osteomyelitis. Moderate dorsal soft tissue edema/ cellulitis noted. Waiting for deli cook to see the patient. Advised the patient to compliant with her regimen. Continuing sliding scale insulin. Continuing Lantus. I will increase Lantus to 25 units subQ q.h.s. for better blood glucose control. Plan discussed with: Patient Date of Service: Apr 05, 2024 Billing Provider: JOHN MORENO MD Common Visit Codes: [id number] INP/OBS CARE(HIGH) JOHN MORENO MD Apr 05, 2024 13:29
[2024-04-05] MEDS: POLYETHYLENE GLYCOL 17 GM PWDR PO PRN (15:56)
[2024-04-06 05:00] VITALS: BP 135/75; PULSE 79; RESP 20; TEMP 98; O2SAT 95
[2024-04-06] MEDS: INSULIN LANTUS (GLARGINE) 1 /0.01ml (100units/ml) SC SCH (06:44)
[2024-04-06 07:05] LABS: Basophils # (auto) 0 10 ^3/uL (0-0.2); Basophils % (auto) 0.8 % (0.0-2.0); Eosinophils # (auto) 0.2 10 ^3/uL (0-0.8); Hematocrit 40.5 % (36.0-46.0); Hemoglobin 13.9 g/dL (12.2-16.2); Lymphocytes # (auto) 2.9 10 ^3/uL (0.4-5.4); Lymphocytes % (auto) 46.9 % (10.0-50.0); Mean Corpuscular Hemoglobin 32.1 pg (28.0-32.0); Mean Corpuscular Hgb Conc. 34.3 g/dL (32.0-36.0); Mean Corpuscular Volume 93.7 fL (80.0-100.0); Monocytes # (auto) 0.6 10 ^3/uL (0-1.3); Monocytes % (auto) 10.2 % (0.0-12.0); Neutrophils # (auto) 2.3 10 ^3/uL (1.6-8.6); Neutrophils % (auto) 38.1 % (37.0-80.0); Nucleated Red Blood Cells % 0.1 %; Platelet Count (auto) 227 10^3/uL (140-450); Red Blood Cells 4.32 10^6/uL (4.0-5.20); Red Cell Distribution Width 13.4 % (11.8-14.3); White Blood Cell 6.1 10^3/uL (4.4-10.8)
[2024-04-06 07:10] LABS: Chloride 109 mmol/L (98-107); Potassium 3.7 mmol/L (3.5-5.1); Sodium 140 mmol/L (136-145)
[2024-04-06 07:11] LABS: Anion Gap 7 (5-15); Calcium 9.3 mg/dL (8.7-10.4); Carbon Dioxide 24 mmol/L (20-31)
[2024-04-06 07:16] LABS: BUN/Creatinine Ratio 18.4 (10.0-20.0); Blood Urea Nitrogen 9 mg/dL (9-23); Glucose 185 mg/dL (74-106)
[2024-04-06 07:30] VITALS: RESP 16; O2SAT 95
--- NOTE | 2024-04-06 09:19 | DVHINCON2 ---
Date Seen: Apr 06, 2024 Reason for Consultation Right foot wound History of Present Illness MACK JENKINS is a 53 years old female with a PMH of type 2 DM, HTN presented to the ED with the chief complaints of persistent right foot ulcer, pain for past 1 week. Last night patient had small cut in right foot, she went to ED, given Keflex but despite of antibiotic she has been having increased pain, swelling and worsening of the ulcer which prompted her to ED. patient states pain is 7/10 constant. Patient denies she is not taking any medications for her diabetes and hypertension. On my assessment patient denies fever, nausea, vomiting, chills, abdominal pain, chest pain, and other associated symptom Past Medical History See H&P Past Surgical History See H&P Family History: Patient reports no known family medical history. Allergies: Coded Allergies: NO KNOWN ALLERGIES (Unverified , 03/30/24) Home Meds Active Scripts Cephalexin (KEFLEX CAPSULE) 250 Mg Cp, 500 MG PO BID, #14 CAP Prov:CRISTAL CARABALLO MD 03/30/24 Current Medications Current Medications Medications (Trade) Dose Ordered Sig/Robert Route PRN Reason Start Time Stop Time Status Last Admin Insulin Glargine (Lantus) 25 units QAM SC 04/06/24 07:00 04/06/24 06:44 Polyethylene Glycol (Miralax 17GM Powder) 17 gm DAILYPRN PRN PO FOR CONSTIPATION 04/05/24 14:30 04/05/24 15:56 Vital Signs Vital Signs Date Time Temp Pulse Resp B/P (MAP) Pulse Ox O2 Delivery O2 Flow Rate FiO2 04/06/24 05:00 98.0 79 20 135/75 (95) 95 98.0 04/05/24 20:00 Room Air* 0 21 Physical Exam DERMATOLOGIC EXAM: - Skin is dry and cool to the touch dry bilaterally. - Nails 1-5 of the bilateral foot are thickened, discolored, dystrophic, and tender to palpate with subungual debris - Hair loss noted to bilateral feet Wound #1: Location: Sub 2nd Measurements: Length 1 cm x width 0.5 cm x depth 0.5 cm. Wound margins: Hyperkeratotic. Wound base: Full thickness. General Appearance: Healthy and bleeding. Probes to Bone: No Purulent drainage: No Serous drainage: No Erythema: Absent VASCULAR EXAM: - DP and PT pulses are palpable bilaterally. - PROJECT HIRE is brisk to all digits. - Feet are cool to touch compared to lower legs bilaterally. NEUROLOGIC EXAM: - Normal light touch sensation to the superficial peroneal, deep peroneal, sural, saphenous, and tibial nerve branches. - Protective sensation is diminished as tested with a 5.07 10g [place] bilaterally. MUSCULOSKELETAL EXAM: - No gross deformities - Muscle strength is 5/5 and active motion is pain-free and symmetrical bilaterally - No pain or crepitation with passive range of motion bilaterally to all major pedal joints Labs/Diagnostic Data Labs Test 04/06/24 06:32 04/06/24 06:05 04/05/24 10:05 04/04/24 06:04 Range/Units POC Glucose 199 H 70-106 mg/dl White Blood Count 6.1 4.4-10.8 10^3/uL Red Blood Count 4.32 4.0-5.20 10^6/uL Hemoglobin 13.9 12.2-16.2 g/dL Hematocrit 40.5 36.0-46.0 % Mean Corpuscular Volume 93.7 80.0-100.0 fL Mean Corpuscular Hemoglobin 32.1 H 28.0-32.0 pg Mean Corpuscular Hemoglobin Concent 34.3 32.0-36.0 g/dL Red Cell Distribution Width 13.4 11.8-14.3 % Platelet Count 227 140-450 10^3/uL Mean Platelet Volume 10.4 6.9-10.8 fL Neutrophils (%) (Auto) 38.1 37.0-80.0 % Lymphocytes (%) (Auto) 46.9 10.0-50.0 % Monocytes (%) (Auto) 10.2 0.0-12.0 % Eosinophils (%) (Auto) 4.0 0.0-7.0 % Basophils (%) (Auto) 0.8 0.0-2.0 % Neutrophils # (Auto) 2.3 1.6-8.6 10 ^3/uL Lymphocytes # (Auto) 2.9 0.4-5.4 10 ^3/uL Monocytes # (Auto) 0.6 0-1.3 10 ^3/uL Eosinophils # (Auto) 0.2 0-0.8 10 ^3/uL Basophils # (Auto) 0 0-0.2 10 ^3/uL Nucleated Red Blood Cells 0.1 % Sodium Level 140 136-145 mmol/L Potassium Level 3.7 3.5-5.1 mmol/L Chloride Level 109 H 98-107 mmol/L Carbon Dioxide Level 24 20-31 mmol/L Anion Gap 7 5-15 Blood Urea Nitrogen 9 9-23 mg/dL Creatinine 0.49 L 0.550-1.02 mg/dL Glomerular Filtration Rate Calc 112 >90 mL/min BUN/Creatinine Ratio 18.4 10.0-20.0 Serum Glucose 185 H 74-106 mg/dL Calcium Level 9.3 8.7-10.4 mg/dL Vancomycin Level Trough 8.5 5-10 ug/mL Total Bilirubin 0.3 0.2-1.0 mg/dL Aspartate Amino Transferase (AST) 162 H 13-40 U/L Alanine Aminotransferase (ALT) 86 H 7-40 U/L Alkaline Phosphatase 151 H 46-116 U/L Total Protein 6.1 5.7-8.2 g/dL Albumin 3.6 3.2-4.8 g/dL Test 04/03/24 14:26 Range/Units Lactic Acid Level 1.7 0.4-2.0 mmol/L Microbiology Date/Time Source Procedure Growth Status 04/04/24 07:15 Foot Gram Stain - Final Resulted 04/04/24 07:15 Wound Culture - Preliminary Enterococcus faecalis Resulted 04/03/24 14:26 Blood Blood Culture - Preliminary NO GROWTH AFTER 48 HOURS OF INCUBATION. Resulted Problems(with codes): (1) Hypertension (2) Cellulitis of right foot (3) Diabetic foot ulcer (4) Poorly controlled diabetes mellitus Plan/Recommendation ASSESSMENT: Patient is a 53-year-old female seen on the floor for a right foot wound PLAN: - The patients chart was reviewed, clinical findings were discussed with the patient, the etiologies of the conditions were discussed in detail, and a treatment plan was agreed to at this time, with both oral and written instructions provided. - reviewed imaging which did not show any abscess or osteomyelitis formation - discussed with the patient that the wound does not appear deep at this point and she would just need local wound care - recommend patient follows up with me a week after discharge - patient can call and schedule an appointment here - continue wound dressing - recommend postop shoe from patient - no surgical indication at this point All questions were answered and concerns addressed to the patient's satisfaction. The patient was given the phone number to the clinic and was told how to make contact with the clinic should any concerns or questions arise. Alek mendez understands that if any questions or concerns arise prior to the next appointment, we should be contacted immediately. FOLLOW-UP: Follow up with the 1 week after discharge Plan discussed with: Patient Date of Service: Apr 06, 2024 Billing Provider: KEO SALDANA DPM Common Visit Codes: [id number] INP/OBS CARE (MOD) KEO SALDANA DPM Apr 06, 2024 09:19
[2024-04-06 09:20] VITALS: BP 165/99; PULSE 82; RESP 19; TEMP 98.3; O2SAT 97
--- NOTE | 2024-04-06 10:32 | DVHPN2 ---
Reviewed: Care Plan, H&P, Labs, Medications, Previous Orders, Radiology Changes from previous H/P or p: No Changes Eyes: No Pain, No Vision change, No Conjunctivae inflammation, No Eyelid inflammation, No Other, No Redness ENT: No Ear pain, No Ear discharge, No Nose pain, No Nose discharge, No Nose congestion, No Mouth pain, No Mouth swelling, No Throat pain, No Throat swelling, No Other Respiratory: No Cough, No Dry, No Shortness of breath, No SOB with excertion, No Wheezing, No Hemoptysis, No Pleuritic Pain, No Sputum, No Other Gastrointestinal: No Nausea, No Vomiting, No Abdominal Pain, No Diarrhea, No Constipation, No Melena, No Hematochezia, No Other Genitourinary: No Dysuria, No Frequency, No Incontinence, No Hematuria, No Retention, No Other Musculoskeletal: No other, No neck pain, No shoulder pain, No arm pain, No back pain, No hand pain, No leg pain, No foot pain Skin: Other (Wound on plantar surface of right 2nd and 3rd metatarsal heads which is indurated, swollen, hot) Objective Vitals Vital Signs Date Time Temp Pulse Resp B/P (MAP) Pulse Ox O2 Delivery O2 Flow Rate FiO2 04/06/24 09:36 82 165/99 04/06/24 09:20 98.3 19 97 98.3 04/06/24 07:30 Room Air* 0 21 Intake/Output Intake and Output 04/06/24 07:00 Intake Total 1275 ml Output Total 600 ml Balance 675 ml Intake Oral 725 ml IV Total 550 ml Output Urine Total 600 ml # Voids 3 General Appearance: Alert, Oriented X3, Cooperative, No acute distress HEENT: Atraumatic, PERRLA, EOMI, Mucous membr. moist/pink Neck: Supple Lungs: Clear to auscultation, Normal air movement Cardiovascular: Regular rate, Normal S1, Normal S2, No murmurs, Gallops, Rubs Abdomen: Normal bowel sounds, Soft, No tenderness Neuro: Cranial nerves 3-12 NL Psych/Mental Status: Mental status NL Medications Current Medications Medications Dose Ordered Sig/Robert Route Start Time Stop Time Status Last Admin Dose Admin Sodium Chloride 10 ml Q8HR IV 04/03/24 22:00 04/06/24 05:32 10 ML Acetaminophen 325 mg Q4HP PRN PO 04/03/24 20:30 04/06/24 03:23 325 MG Ondansetron HCl 4 mg Q4HP PRN IV 04/03/24 20:30 Morphine Sulfate 2 mg Q4HPRN PRN IV 04/03/24 20:30 04/04/24 15:48 2 MG Enoxaparin Sodium 40 mg DAILY SC 04/03/24 20:30 04/05/24 10:26 40 MG Nitroglycerin 0.4 mg Q5MINP PRN SL 04/03/24 20:30 Morphine Sulfate 2 mg Q30M PRN IV 04/03/24 20:30 Diagnostic Test (Pha) 1 strip ACHS 04/03/24 22:00 04/06/24 06:35 1 STRIP Insulin Human Regular AC SC 04/04/24 07:00 04/06/24 06:41 4 UNITS Insulin Human Regular HS SC 04/03/24 22:00 04/05/24 22:20 6 UNITS Dextrose 50 ml UD PRN IV 04/03/24 20:30 Vancomycin HCl 0 ml @ 0 mls/hr UD IV 04/04/24 00:45 Labetalol HCl 10 mg Q2HPRN PRN IV 04/04/24 01:00 04/06/24 09:36 10 MG Cefepime HCl 50 ml @ 12.5 mls/hr Q8HR IV 04/04/24 12:00 04/06/24 05:33 12.5 MLS/HR Vancomycin HCl 150 ml @ 150 mls/hr Q10H IV 04/04/24 14:00 04/06/24 05:32 150 MLS/HR Docusate Sodium 100 mg BIDPRN PRN PO 04/04/24 12:30 04/05/24 10:25 100 MG Insulin Glargine 25 units QAM SC 04/06/24 07:00 04/06/24 06:44 25 UNITS Polyethylene Glycol 17 gm DAILYPRN PRN PO 04/05/24 14:30 04/05/24 15:56 17 GM Laboratory Results Laboratory Tests 04/06/24 06:05 Chemistry Test 04/06/24 06:05 Calcium Level 9.3 mg/dL (8.7-10.4) Microbiology Microbiology Date/Time Source Procedure Growth Status 04/04/24 07:15 Foot Gram Stain - Final Resulted 04/04/24 07:15 Wound Culture - Preliminary Enterococcus faecalis Resulted 04/03/24 14:26 Blood Blood Culture - Preliminary NO GROWTH AFTER 48 HOURS OF INCUBATION. Resulted Labs and/or images reviewed: Labs reviewed by me, Image(s) reviewed by me Assessment/Plan Assessment/Plan Sepsis secondary to right foot cellulitis: Vancomycin cefepime, podiatric consult by appreciated advised outpatient follow up in one week Osteomyelitis right foot ruled out by negative MRI Uncontrolled diabetes: Insulin sliding scale Diabetic neuropathy vasculopathy Hypertensive urgency Medication noncompliance patient has ran out of metformin No PCP: Social service consult for new PCP Patient wants to go home today Plan discussed with: Patient Date of Service: Apr 06, 2024 Billing Provider: MONICA JOSEPH MD Common Visit Codes: [id number] INP/OBS CARE(HIGH) MONICA JOSEPH MD Apr 06, 2024 10:32
[2024-04-06] MEDS ORDERED: METF-372 PO (10:35)
[2024-04-06] MEDS ORDERED: LINE1TAB6 PO (10:35)
--- NOTE | 2024-04-06 10:42 | DVHDS2 ---
Discharge Summary Date of Admission Apr 03, 2024 at 20:24 Date of Discharge: Apr 06, 2024 Admitting Diagnosis Nonhealing right foot diabetic wound Wounds: Nonhealing right foot diabetic wound Labs/Diagnostic Data: Laboratory Results Test 04/06/24 06:32 04/06/24 06:05 04/05/24 10:05 04/04/24 06:04 POC Glucose 199 mg/dl (70-106) White Blood Count 6.1 10^3/uL (4.4-10.8) Red Blood Count 4.32 10^6/uL (4.0-5.20) Hemoglobin 13.9 g/dL (12.2-16.2) Hematocrit 40.5 % (36.0-46.0) Mean Corpuscular Volume 93.7 fL (80.0-100.0) Mean Corpuscular Hemoglobin 32.1 pg (28.0-32.0) Mean Corpuscular Hemoglobin Concent 34.3 g/dL (32.0-36.0) Red Cell Distribution Width 13.4 % (11.8-14.3) Platelet Count 227 10^3/uL (140-450) Mean Platelet Volume 10.4 fL (6.9-10.8) Neutrophils (%) (Auto) 38.1 % (37.0-80.0) Lymphocytes (%) (Auto) 46.9 % (10.0-50.0) Monocytes (%) (Auto) 10.2 % (0.0-12.0) Eosinophils (%) (Auto) 4.0 % (0.0-7.0) Basophils (%) (Auto) 0.8 % (0.0-2.0) Neutrophils # (Auto) 2.3 10 ^3/uL (1.6-8.6) Lymphocytes # (Auto) 2.9 10 ^3/uL (0.4-5.4) Monocytes # (Auto) 0.6 10 ^3/uL (0-1.3) Eosinophils # (Auto) 0.2 10 ^3/uL (0-0.8) Basophils # (Auto) 0 10 ^3/uL (0-0.2) Nucleated Red Blood Cells 0.1 % Sodium Level 140 mmol/L (136-145) Potassium Level 3.7 mmol/L (3.5-5.1) Chloride Level 109 mmol/L (98-107) Carbon Dioxide Level 24 mmol/L (20-31) Anion Gap 7 (5-15) Blood Urea Nitrogen 9 mg/dL (9-23) Creatinine 0.49 mg/dL (0.550-1.02) Glomerular Filtration Rate Calc 112 mL/min (>90) BUN/Creatinine Ratio 18.4 (10.0-20.0) Serum Glucose 185 mg/dL (74-106) Calcium Level 9.3 mg/dL (8.7-10.4) Vancomycin Level Trough 8.5 ug/mL (5-10) Total Bilirubin 0.3 mg/dL (0.2-1.0) Aspartate Amino Transferase (AST) 162 U/L (13-40) Alanine Aminotransferase (ALT) 86 U/L (7-40) Alkaline Phosphatase 151 U/L (46-116) Total Protein 6.1 g/dL (5.7-8.2) Albumin 3.6 g/dL (3.2-4.8) Test 04/03/24 14:26 Lactic Acid Level 1.7 mmol/L (0.4-2.0) Other Laboratory Tests 04/06/24 06:05 Brief Hx & Hospital Course: 53-year-old female diabetic noncompliant ran out of metformin no primary Dr came in complaining of nonhealing right foot diabetic wound found to have cellulitis. MRI ruled out osteomyelitis seen by podiatric Dr. Rizzo advised the wound is superficial and does not need debridement advised outpatient follow up with him Patient was treated with vancomycin and cefepime wound cultures came positive for E faecalis. The patient to be discharged home on Zyvox tablets and a refill for metformin she was advised to follow up with the [facility] clinic and primary Dr and the retail loan originator. Patient was educated about compliance with the medications to prevent further complications from diabetes Consults/Reason for consult Pull Over Machine Operator Dr. Rizzo Operations or Procedures MRI right foot Condition at Discharge: Fair Final Diagnosis/Problems List Sepsis secondary to right foot cellulitis: Vancomycin cefepime, podiatric consult by appreciated advised outpatient follow up in one week Osteomyelitis right foot ruled out by negative MRI Uncontrolled diabetes: Insulin sliding scale Diabetic neuropathy vasculopathy Wound cultures growing E faecalis, patient will be sent home on Zyvox tablets Hypertensive urgency Medication noncompliance patient has ran out of metformin Discharge Disposition: Home Discharge Instruct/Medications Diet: Consistent carbohydrate Activity: Light activity Follow Up/Referral: Fill the medications today and start taking medications Follow up with your primary Dr and discharge clinic in one week Check your blood sugars 3 times daily and take metformin Follow up with the retail loan originator Dr Rizzo in one week. Medications: Metformin Zyvox Transmitted to pharmacy 35 (Time taken for discharge summary 35 minutes) Discharge Statement: "Patient was advised to return to the ER or call 911 if any headaches, dizziness, shortness of breath, chest pain, abdominal pain, bleeding, fevers, or worsening of medical condition. Patient was counseled about treatment plan, medications, possible side effects, patientverbalized understanding. All questions were answered to the best of my ability. This discharge took greater then 30 minutes in planning, reviewing documentation, counseling the patient, and discussing with other team members." ASSESSMENT ASSESSMENT Hospital Course Improved Assessment Sepsis secondary to right foot cellulitis: Vancomycin cefepime, podiatric consult by appreciated advised outpatient follow up in one week Osteomyelitis right foot ruled out by negative MRI Uncontrolled diabetes: Insulin sliding scale Diabetic neuropathy vasculopathy Wound cultures growing E faecalis, patient will be sent home on Zyvox tablets Hypertensive urgency Medication noncompliance patient has ran out of metformin Date of Service: Apr 06, 2024 Billing Provider: MONICA JOSEPH MD Common Visit Codes: [id number] DISCH DAY >30min MONICA JOSEPH MD Apr 06, 2024 10:42
[2024-04-06 13:02] VITALS: BP 165/99; PULSE 82; RESP 19; TEMP 98.3; O2SAT 97
== END 2024-04-06 14:05 | disposition home or self-care (01) | DRG 383 ==
LOC: ER 13:41 → OVERFLOW 20:24 → CENTRAL 22:15
PROVIDERS: ADMIT Internal Medicine; ATTEND Family Medicine
DX: L03.115 Cellulitis of right lower limb (principal); E11.40 Type 2 diabetes mellitus with diabetic neuropathy, unspecified; E11.621 Type 2 diabetes mellitus with foot ulcer; E11.69 Type 2 diabetes mellitus with other specified complication; I16.0 Hypertensive urgency; T38.3X6A Underdosing of insulin and oral hypoglycemic [antidiabetic] drugs, initial encounter; Z90.49 Acquired absence of other specified parts of digestive tract; Z83.3 Family history of diabetes mellitus; Z91.148 Patient's other noncompliance with medication regimen for other reason; Z91.199 Patient's noncompliance with other medical treatment and regimen due to unspecified reason
CPT/HCPCS: 36415; 71045; 73700; 73718; 80048; 80053; 80202; 82565; 82962; 83605; 85025; 87040; 87077; 87186; 87205; G0378; J1815; J3490

== ENCOUNTER 2024-05-20 17:15 | Emergency (ER) | payer SELFPAY ==
[~2024-05-20] VITALS: Ht 149.9 cm; Wt 70.5 kg
[~2024-05-20 17:15] MED LIST changes: +LINE1TAB6 PO; +METF-372 PO
[2024-05-20 17:45] VITALS: TEMP 98.2
[2024-05-20] MEDS: ONDANSETRON HCL 4 MG/2 ML VIAL IV ONE (17:53)
[2024-05-20] MEDS: MORPHINE SULFATE 4 MG/ML SYR/VIAL IV ONE (17:54)
[2024-05-20 18:09] VITALS: BP 137/93; PULSE 95; RESP 19; O2SAT 100
[2024-05-20] MEDS: PANTOPRAZOLE 40 MG/10 ML VIAL INJ IV ONE (18:15)
[2024-05-20] MEDS: SODIUM CHLORIDE 0.9% 500 ML IVB ONE (18:25)
--- NOTE | 2024-05-20 18:31 | ED.PDOC ---
GI ASSESSMENT HPI Comments 54y F who presents to the ED via EMS for chief complaint of abdominal pain. Pt states she has been having abdominal pain with associated constipation for the past 4 days. Pt states she took a medication for her constipation given by her daughter but states it did not help. Pt states the pain is diffusely located, sharp in nature, rating the pain 10/10, with no associated exacerbating or relieving factors. Pt has associated nausea but otherwise denies vomiting today, and denies diarrhea, fever, cough, chills, dysuria, hematuria or hematemesis. Pt otherwise denies any other symptoms at this time. Chief Complaint: Abdominal Pain Time Seen by MD: 18:22 Primary Care Provider: DENIES Reviewed Notes: Nurses Notes, Medications, Allergies (No allergies to medications) Allergies: Coded Allergies: NO KNOWN ALLERGIES (Unverified , 03/30/24) Home Meds Active Scripts Metformin Hydrochloride (Metformin Hcl) 1,000 Mg Tab, 1 TAB PO BID, #60 TAB 5 Refills Prov:MONICA JOSEPH MD 04/06/24 Linezolid (Zyvox) 600 Mg Tab, 600 MG PO BID, #60 TAB Prov:MONICA JOSEPH MD 04/06/24 Cephalexin (KEFLEX CAPSULE) 250 Mg Cp, 500 MG PO BID, #14 CAP Prov:CRISTAL CARABALLO MD 03/30/24 Information Source: Patient Mode of Arrival: EMS Brought in by: EMS Timing: Hours Duration: Since onset Prehospital treatment: None Quality: Sharp Vomitus: Soft Stool: Normal Severity: Moderate Recent: None Recent Hx of: Constipation Pain Location: Diffuse Modifying Factors: Nothing Associated sign and symptoms: Nausea, Constipation, Abdominal Pain Past Medical History PAST MEDICAL HISTORY: DM, HTN Surgical History: BTL, Cholecystectomy, , Tubal Ligation FLASK PUSHER History: Denies all FLASK PUSHER Hx Family History Family History: Family hx of DM Social History Smoker: Non-Smoker Alcohol: Denies ETOH Use Drugs: Denies Drug Use Lives In: Home Constitutional: denies: chills, diaphoresis, fatigue, fever, malaise, sweats, weakness, others EENTM: denies: blurred vision, double vision, ear bleeding, ear discharge, ear drainage, ear pain, ear ringing, eye pain, eye redness, hearing loss, mouth pain, mouth swelling, nasal discharge, nose bleeding, nose congestion, nose pain, photophobia, tearing, throat pain, throat swelling, voice changes, others Respiratory: denies: cough, hemoptysis, orthopnea, SOB at rest, shortness of breath, SOB with excertion, stridor, wheezing, others Cardiovascular: denies: chest pain, dizzy spells, diaphoresis, Dyspnea on exertion, edema, irregular heart beat, left arm pain, lightheadedness, palpitations, PND, syncope, others Gastrointestinal: reports: abdominal pain, constipated, nausea; denies: abdomen distended, blood streaked bowels, diarrhea, dysphagia, difficulty swallowing, hematemesis, melena, poor appetite, poor fluid intake, rectal bleeding, rectal pain, vomiting, others Genitourinary: denies: abnormal vagina bleeding, burning, dyspareunia, dysuria, flank pain, frequency, hematuria, incontinence, pain, , vagina discharge, urgency, others Neurological: denies: dizziness, fainting, headache, left sided numbness, left sided weakness, numbness, paresthesia, pre-existing deficit, right sided numbness, right sided weakness, seizure, speech problems, tingling, tremors, weakness, others Musculoskeletal: denies: back pain, gout, joint pain, joint swelling, muscle pain, muscle stiffness, neck pain, others Integumetry: denies: bruises, change in color, change in hair/nails, dryness, laceration, lesions, lumps, rash, wounds, others Allergic/Immunocompromised: denies: Difficulty Healing, Frequent Infections, Hives, Itching, others Hematologic/Lymphatic: denies: anemia, blood clots, easy bleeding, easy bruising, swollen glands, others Endocrine: denies: excessive hunger, excessive sweating, excessive thirst, excessive urination, flushing, intolerance to cold, intolerance to heat, unexplained weight gain, unexplained weight loss, others Psychiatric: denies: anxiety, bipolar disorder, depression, hopeless, panic disorder, schizophrenia, sleepless, suicidal, others All Other Systems: Reviewed and Negative Physical Exam General Appearance: Moderate Distress HEENT: Normal ENT Inspection, Pharynx Normal, TMs Normal Neck: Full Range of Motion, Non-Tender, Normal, Normal Inspection Respiratory: Chest Non-Tender, Lungs Clear, No Accessory Muscle Use, No Respiratory Distress, Normal Breath Sounds Cardiovascular: No Edema, No JVD, No Murmur, No Gallop, Normal Peripheral Pulses, Regular Rate/Rhythm Breast Exam: Deferred Gastrointestinal: Epigastric, No Organomegaly, No Pulsatile Mass, Normal Bowel Sounds, Soft, Tenderness Genitalia: Deferred Pelvic: Deferred Rectal: Deferred Extremities: No calf tenderness, Normal capillary refill, Normal inspection, Normal range of motion, Non-tender, No pedal edema Musculoskeletal : Apperance: Normal Neurologic: Alert, software testing specialist II-XII nml as Tested, No Motor Deficits, Normal Affect, Normal Mood, No Sensory Deficits Cerebellar Function: Normal Reflexes: Normal Skin: Dry, Normal Color, Warm Lymphatic: No Adenopathy Was a procedure done? Was a procedure done?: No GI differential Dx Differential Diagnosis: Constipation, Diverticular disease, Dysmenorrhea, Gastritis/PUD, Gastroenteritis, GI hemorrhage, Inflammatory BD, Food Poisoning X-Ray, Labs, Meds, VS Vital Signs Date Time Temp Pulse Resp B/P (MAP) Pulse Ox O2 Delivery O2 Flow Rate FiO2 05/20/24 18:09 95 19 137/93 (108) 100 05/20/24 18:08 95 19 137/93 05/20/24 17:54 102 20 164/86 05/20/24 17:45 98.2 102 20 164/86 (112) 95 98.2 05/20/24 17:45 102 20 95 Room Air 05/20/24 17:26 96 05/20/24 17:18 98.7 105 24 203/128 (153) 99 Lab Test 05/20/24 19:48 Range/Units White Blood Count 8.5 4.4-10.8 10^3/uL Red Blood Count 4.72 4.0-5.20 10^6/uL Hemoglobin 15.1 12.2-16.2 g/dL Hematocrit 44.0 36.0-46.0 % Mean Corpuscular Volume 93.3 80.0-100.0 fL Mean Corpuscular Hemoglobin 32.0 28.0-32.0 pg Mean Corpuscular Hemoglobin Concent 34.3 32.0-36.0 g/dL Red Cell Distribution Width 13.5 11.8-14.3 % Platelet Count 207 140-450 10^3/uL Mean Platelet Volume 10.9 H 6.9-10.8 fL Neutrophils (%) (Auto) 64.3 37.0-80.0 % Lymphocytes (%) (Auto) 26.3 10.0-50.0 % Monocytes (%) (Auto) 8.0 0.0-12.0 % Eosinophils (%) (Auto) 0.9 0.0-7.0 % Basophils (%) (Auto) 0.5 0.0-2.0 % Neutrophils # (Auto) 5.5 1.6-8.6 10 ^3/uL Lymphocytes # (Auto) 2.2 0.4-5.4 10 ^3/uL Monocytes # (Auto) 0.7 0-1.3 10 ^3/uL Eosinophils # (Auto) 0.1 0-0.8 10 ^3/uL Basophils # (Auto) 0 0-0.2 10 ^3/uL Nucleated Red Blood Cells 0.1 % Sodium Level 137 136-145 mmol/L Potassium Level 4.0 3.5-5.1 mmol/L Chloride Level 106 98-107 mmol/L Carbon Dioxide Level 23 20-31 mmol/L Anion Gap 8 5-15 Blood Urea Nitrogen 9 9-23 mg/dL Creatinine 0.64 0.550-1.02 mg/dL Glomerular Filtration Rate Calc 104 >90 mL/min BUN/Creatinine Ratio 14.1 10.0-20.0 Serum Glucose 289 H 74-106 mg/dL Calcium Level 9.6 8.7-10.4 mg/dL Total Bilirubin 0.8 0.2-1.0 mg/dL Aspartate Amino Transferase (AST) 338 H 13-40 U/L Alanine Aminotransferase (ALT) 127 H 7-40 U/L Alkaline Phosphatase 173 H 46-116 U/L Total Protein 6.9 5.7-8.2 g/dL Albumin 4.1 3.2-4.8 g/dL Lipase 226 H 12-53 U/L Current Medications Medications (Trade) Dose Ordered Sig/Orbert Route Start Time Stop Time Status Last Admin Morphine Sulfate 3 mg ONCE ONCE IV 05/20/24 17:30 05/20/24 17:31 DC 05/20/24 17:54 Ondansetron HCl (Zofran) 4 mg ONCE ONCE IV 05/20/24 17:30 05/20/24 17:31 DC 05/20/24 17:53 Sodium Chloride 500 ml @ 500 mls/hr Q1H ONCE IVB 05/20/24 18:15 05/20/24 19:14 DC 05/20/24 18:25 Pantoprazole Sodium (Protonix) 40 mg ONCE ONCE IV 05/20/24 18:15 05/20/24 18:19 DC 05/20/24 18:15 Exam: CT CT AB PEL WO CON-NO ORAL OR IV IMPRESSION: Fecal impaction. Moderate fecal retention throughout the distal colon, correlate for constipation. Liquid stool in the proximal colon and nondistended fluid-filled loops of small bowel. These findings are nonspecific but can be seen with viral enterocolitis. IV Hep-Lock was established The patient was given morphine 3 mg IV push for the pain The patient was given Zofran 4 mg IV push for the nausea and vomiting The patient was given Protonix 40 mg IV push The patient was bolused with normal saline at 500 cc At this time, the lipase level is elevated at 226 The patient was being admitted with a diagnosis of acute pancreatitis The CBC and chemistry panel are within normal limits except for hyperglycemia The liver enzymes also elevated Images Reviewed?: Images reviewed and evaluated by me Time of 1ST Reevaluation: 19:00 Reevaluation 1ST: Unchanged Patient Education/Counseling: Diagnosis, Treatment, Prognosis Family Education/Counseling: No Family Present Additional Information I reviewed the following notes from patient's past medical encounters: The following tests were ordered, and results were reviewed by me: pantoprazole, CT abdomen and pelvis without contrast,IV fluids, lipase, CMP, CBC, EKGx1, UA, Zofran, Additional Information was gathered from interviewing the following independent historians: EMS I reviewed and agreed with the following test results read by other providers: radiologist I discussed treatment and results with medical personnel and: patient Departure 1 Departure Time of Disposition: 21:44 Impression: Primary Impression: Intractable abdominal pain Additional Impression: Acute pancreatitis Qualified Codes: K85.90 - Acute pancreatitis without necrosis or infection, unspecified Disposition: ADMITTED INPATIENT Admit to: Med Surg Condition: Fair Critical Care Note Critical Care Time?: No Stability Stability form required: Yes Unstable for transfer: ED Physician Assesment (Clinical assesment) Heart Score Heart Score: Heart Score Response (Comments) Value History N/A 0 EKG N/A 0 Age N/A 0 Risk Factors N/A 0 Troponin N/A 0 Total 0 I personally scribed for BERONICA LUKE MD ([email or web address]) on 05/20/24 at 18:31. Electronically submitted by Netta Hernández ([email or web address]). I personally scribed for BERONICA LUKE MD ([email or web address]) on 05/20/24 at 19:42. Electronically submitted by Netta Hernández ([email or web address]). BERONICA LUKE MD May 20, 2024 18:31
--- NOTE | 2024-05-20 19:31 | DVH ---
Exam: CT CT AB PEL WO CON-NO ORAL OR IV History: pain Comparison Study: None available at time of dictation. Technique: Multidetector spiral CT of the abdomen was performed from lung bases to pubic symphysis. Imaging was performed without IV contrast. Axial, coronal and sagittal multiplanar reformats were ob tained from the axial data set by the technologist. Radiation Dose : 1. Abdomen/Pelvis: CTDIvol 20 mGy, DLP 1027 mGy*cm. Findings: Evaluation of solid organs is limited due to lack of intravenous contrast use. Lung Bases: No acute or significant lung base finding. Normal heart size. No pleural or pericardial effusion. Liver: The liver is normal in size. No focal lesions. Gallbladder and Biliary Tree: Gallbladder is surgically absent. Spleen: Unremarkable Pancreas: The pancreas is grossly normal in appearance. Adrenal Glands: Unremarkable Kidneys: Kidneys are grossly normal without calculi or hydronephrosis. Bladder: Grossly unremarkable for degree of distention. Bowel: The stomach is grossly normal in appearance. Moderate fecal retention in the distal colon. Li quid stool in the proximal colon. Possible fecal impaction. Nondistended fluid-filled loops of small bowel. The appendix is not visualized; however, no secondary findings of acute appendicitis identifi ed. Ascites: Absent Lymphadenopathy: No mesenteric, retroperitoneal or periportal lymphadenopathy. Abdominal Wall and Mesentery: Unremarkable. Vasculature: The visualized abdominal aorta is normal in size and caliber. Evaluation of abdominal a nd pelvic vessels is limited due to lack of intravenous contrast. Pelvic Organs: Unremarkable Musculoskeletal: No aggressive focal bony lesions, acute fractures or dislocation. 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 IMPRESSION: Fecal impaction. Moderate fecal retention throughout the distal colon, correlate for constipation. Liquid stool in the proximal colon and nondistended fluid-filled loops of small bowel. These findings are nonspecific but can be seen with viral enterocolitis.
[2024-05-20 20:40] LABS: Basophils # (auto) 0 10 ^3/uL (0-0.2); Basophils % (auto) 0.5 % (0.0-2.0); Eosinophils # (auto) 0.1 10 ^3/uL (0-0.8); Eosinophils % (auto) 0.9 % (0.0-7.0); Hemoglobin 15.1 g/dL (12.2-16.2); Lymphocytes # (auto) 2.2 10 ^3/uL (0.4-5.4); Lymphocytes % (auto) 26.3 % (10.0-50.0); Mean Corpuscular Hgb Conc. 34.3 g/dL (32.0-36.0); Mean Corpuscular Volume 93.3 fL (80.0-100.0); Monocytes # (auto) 0.7 10 ^3/uL (0-1.3); Neutrophils # (auto) 5.5 10 ^3/uL (1.6-8.6); Neutrophils % (auto) 64.3 % (37.0-80.0); Nucleated Red Blood Cells % 0.1 %; Platelet Count (auto) 207 10^3/uL (140-450); Red Blood Cells 4.72 10^6/uL (4.0-5.20); Red Cell Distribution Width 13.5 % (11.8-14.3); White Blood Cell 8.5 10^3/uL (4.4-10.8)
[2024-05-20 20:50] LABS: Albumin 4.1 g/dL (3.2-4.8); Anion Gap 8 (5-15); BUN/Creatinine Ratio 14.1 (10.0-20.0); Bilirubin, Total 0.8 mg/dL (0.2-1.0); Calcium 9.6 mg/dL (8.7-10.4); Carbon Dioxide 23 mmol/L (20-31); Chloride 106 mmol/L (98-107); Sodium 137 mmol/L (136-145); Total Protein 6.9 g/dL (5.7-8.2)
[2024-05-20 20:51] LABS: Alanine Aminotransferase 127 U/L (7-40); Alkaline Phosphatase 173 U/L (46-116); Aspartate Aminotransferase 338 U/L (13-40); Blood Urea Nitrogen 9 mg/dL (9-23); Glucose 289 mg/dL (74-106)
[2024-05-20 21:17] LABS: Lipase 226 U/L (12-53)
== END 2024-05-20 23:52 | disposition left against medical advice (07) ==
LOC: EDBD 17:15 → ER 17:15 → EDUNIT# 17:15 → EDSEX 17:15 → ER 23:52
DX: K85.90 Acute pancreatitis without necrosis or infection, unspecified (principal); R10.84 Generalized abdominal pain; Z79.899 Other long term (current) drug therapy; Z90.49 Acquired absence of other specified parts of digestive tract; Z90.89 Acquired absence of other organs; Z98.890 Other specified postprocedural states
CPT/HCPCS: 36415; 74176; 80053; 83690; 85025; 96361; 96374; 96375; 99285; J2270; J2405; J2470; J7040